=== PATIENT | male | born 1960 | race Caucasian/White ===

== ENCOUNTER 2016-12-20 04:49 | Emergency (ER) | payer OTHER, BC ==
[~2016-12-20] VITALS: Ht 182.9 cm; Wt 90.9 kg
[2016-12-20] MEDS ORDERED: VALIUM5 MG PO (05:47)
[2016-12-20] MEDS ORDERED: MOTRIN800 MG PO (05:47)
[2016-12-20] MEDS ORDERED: PREDNISONE20 MG PO (05:47)
[2016-12-20 06:06] VITALS: BP 165/114
== END 2016-12-20 06:07 | disposition home or self-care (01) ==
LOC: EME 04:49
DX: R07.89 Other chest pain (principal); W11.XXXA Fall on and from ladder, initial encounter; F17.200 Nicotine dependence, unspecified, uncomplicated
CPT/HCPCS: J1885; J3360; J7512